=== PATIENT | female | born 1980 | race Caucasian/White ===

== ENCOUNTER → 2017-07-20 | Outpatient (REF) | payer OTHER ==
[2017-07-20 08:52] LABS: MEAN CORPUSCULAR HEMOGLOBIN 30.4 pg (27.0-33.0); MEAN CORPUSCULAR HGB CONC 34.4 g/dl (32.0-36.5); MEAN CORPUSCULAR VOLUME 88.3 fl (80.0-96.0); WHITE BLOOD COUNT 5.4 K/mm3 (4.0-10.0)
[2017-07-20 09:20] LABS: ALBUMIN 3.6 GM/DL (3.2-5.2); ALBUMIN/GLOBULIN RATIO 1.03 (1.00-1.93); ALKALINE PHOSPHATASE 48 U/L (45-117); ALT/SGPT 17 U/L (12-78); ANION GAP 10 MEQ/L (8-16); AST/SGOT 14 U/L (15-37); BILIRUBIN,TOTAL 0.5 MG/DL (0.2-1.0); BLOOD UREA NITROGEN 16 MG/DL (7-18); CALCIUM LEVEL 8.5 MG/DL (8.5-10.1); CARBON DIOXIDE LEVEL 28 MEQ/L (21-32); CHLORIDE LEVEL 105 MEQ/L (98-107); CHOLESTEROL LEVEL 136 MG/DL (<200); CREATININE FOR GFR 0.79 MG/DL (0.55-1.02); GLOMERULAR FILTRATION RATE > 60.0 (>60); GLUCOSE, FASTING 95 MG/DL (70-105); POTASSIUM SERUM 4.2 MEQ/L (3.5-5.1); SODIUM LEVEL 143 MEQ/L (136-145); TOTAL PROTEIN 7.1 GM/DL (6.4-8.2); TRIGLYCERIDES LEVEL 76 MG/DL (<150)
== END ==
LOC: M LABDRAW1 07:50
PROVIDERS: ATTEND Family Medicine
DX: Z00.00 Encounter for general adult medical examination without abnormal findings (principal)

== ENCOUNTER → 2017-09-30 | Outpatient (REF) | payer OTHER | LOC: M SFHCWAGY 16:12 | PROVIDERS: ATTEND Nurse Practitioner Women's Health | DX: Z12.4 Encounter for screening for malignant neoplasm of cervix (principal) ==

== ENCOUNTER → 2017-10-12 | Outpatient (CLI) | payer OTHER ==
--- NOTE | 2017-10-12 09:40 | REP ---
Clinical: Menorrhagia . Technique: Transabdominal pelvic ultrasound followed by transvaginal examination for better evaluation of the endometrium and adnexa. Findings: Bladder is unremarkable and measures 10.0 x 5.2 x 9.4 cm . Heterogeneous anteverted uterus measures 10.2 x 4.6 x 5.9 cm and a subcentimeter left intramural fibroid is suspected. The endometrial complex measures 11 mm thickness. No discrete endometrial abnormality is identified. Bilateral ovaries are normal in appearance. Right ovary measures 4.2 x 1.3 x 3.0 cm with sub centimeter follicles. Left ovary measures 3.3 x 1.5 x 2.7 cm with sub centimeter follicles. No pelvic fluid or adnexal mass lesion. . Impression: Heterogeneous anteverted uterus with sub centimeter fibroid. Normal bilateral follicles. Signed by Zan Nieto MD 10/12/2017 09:32 A
== END ==
LOC: M WHC 07:52
PROVIDERS: ATTEND Nurse Practitioner Women's Health
DX: D25.1 Intramural leiomyoma of uterus (principal); N85.4 Malposition of uterus

== ENCOUNTER 2017-11-04 06:06 | Day surgery (SDC) | payer OTHER ==
[~2017-11-04] VITALS: Ht 157.5 cm; Wt 90.7 kg
[~2017-11-04 06:06] MED LIST: NO MEDICATIONS
[2017-11-04] MEDS ORDERED: LR 1,000 ML IV SCH ×2 (06:15→09:30)
[2017-11-04 06:30] LABS: MEAN CORPUSCULAR HEMOGLOBIN 28.9 pg (27.0-33.0); MEAN CORPUSCULAR HGB CONC 33.3 g/dl (32.0-36.5); MEAN CORPUSCULAR VOLUME 86.6 fl (80.0-96.0); PLATELET COUNT, AUTOMATED 243 10^3/uL (150-450); RED CELL DISTRIBUTION WIDTH 11.9 % (11.5-14.5); WHITE BLOOD COUNT 5.2 10^3/uL (4.0-10.0)
[2017-11-04 06:43] LABS: CONTROL LINE HCG INT CTR LINE PRESENT
[2017-11-04] MEDS ORDERED: BUPIVACAINE HCL 0.25% 30 ML VIAL As Ordered ONE (07:08)
[2017-11-04] MEDS ORDERED: ROCURONIUM BROMIDE 50 MG/5 ML VIAL As Ordered ONE (07:22)
[2017-11-04] MEDS ORDERED: fentaNYL 250 MCG/5 ML INJECTION (J3010) As Ordered ONE (07:22)
[2017-11-04] MEDS ORDERED: LIDOCAINE 2% INJ 100 MG/5 ML SDV (FOR ANES.) As Ordered ONE (07:22)
[2017-11-04] MEDS ORDERED: PROPOFOL 200 MG/20 ML VIAL As Ordered ONE (07:22)
[2017-11-04] MEDS ORDERED: MIDAZOLAM INJ 2 MG/2 ML VIAL (J2250) As Ordered ONE (07:22)
[2017-11-04] MEDS ORDERED: NEOSTIGMINE 10 MG/10 ML VIAL (J2710) As Ordered ONE (08:00)
[2017-11-04] MEDS ORDERED: ONDANSETRON 4MG/2ML VIAL (J2405) As Ordered ONE ×2 (08:00→09:17)
[2017-11-04] MEDS ORDERED: dexameTHASONE 4 MG/ML 1ML VIAL (J1100) As Ordered ONE (08:00)
[2017-11-04] MEDS ORDERED: GLYCOPYRROLATE INJ 0.2 MG/ML 2 ML VIAL As Ordered ONE (08:00)
[2017-11-04] MEDS ORDERED: KETOROLAC 60 MG/2 ML VIAL (J1885) As Ordered ONE (08:00)
[2017-11-04] MEDS ORDERED: HYDROmorphone HCL 2 MG/ML 1ML VIAL (J1170) As Ordered ONE (08:11)
[2017-11-04] MEDS ORDERED: MORPHINE 10 MG/ML 1ML VIAL IV PRN (09:30)
[2017-11-04] MEDS ORDERED: KETOROLAC 30 MG/ML VIAL (J1885) IV PRN (09:30)
[2017-11-04] MEDS ORDERED: METOCLOPRAMIDE INJ 10MG/2ML VIAL (J2765) IV PRN (09:30)
[2017-11-04] MEDS ORDERED: ONDANSETRON 4MG/2ML VIAL (J2405) IV PRN (09:30)
[2017-11-04] MEDS ORDERED: PERCOCET 5MG/325MG TAB PO PRN (09:30)
[2017-11-04] MEDS ORDERED: fentaNYL 100 MCG/2 ML INJECTION (J3010) IV PRN (09:30)
[2017-11-04] MEDS ORDERED: MEPERIDINE INJ 25 MG/ML VIAL (J2175) IV PRN (09:30)
--- NOTE | 2017-11-04 10:20 | RO ---
DATE OF PROCEDURE: 11/04/2017 PREPROCEDURE DIAGNOSES: 1. Abnormal uterine bleeding. 2. Satisfied parity, undesired fertility. POSTPROCEDURE DIAGNOSES: 1. Abnormal uterine bleeding. 2. Satisfied parity, undesired fertility. PROCEDURES PERFORMED: 1. Laparoscopic bilateral tubal ligation using Filshie clips. 2. Hysteroscopy, dilatation and curettage with NovaSure ablation. SURGEON: Liliya Castanon MD LIBRARY SCIENCE INSTRUCTOR: None. ANESTHESIA: General endotracheal anesthesia. ESTIMATED BLOOD LOSS: 5 mL. INTRAVENOUS FLUIDS: 1 liter of lactated Ringer solution. URINE OUTPUT: 700 mL. SPECIMENS: Endometrial curettings. INFECTION CLASSIFICATION: #1. PREOPERATIVE ANTIBIOTICS: None. OPERATIVE FINDINGS: Laparoscopic findings reveal omental adhesions to the anterior abdominal wall above the umbilicus. Normal appearing pelvic anatomy to include the uterus, anterior and posterior cul-de-sac, bilateral adnexa. Hysteroscopic findings showed thickened endometrium. Uterus dimensions 6.5 x 3.5 cm. Post ablation hysteroscopy demonstrated desiccation of endometrium. DESCRIPTION OF PROCEDURE: After informed consent was obtained and written consent was reviewed, the patient was brought to the operating room where general endotracheal anesthesia was obtained. She was then placed in lithotomy position and was prepped and draped in a normal sterile fashion. A time-out in the operating room was then performed identifying the patient, procedure to be performed, as well as drug allergies. A bivalve speculum was then placed revealing the cervix. The anterior lip of the cervix was then grasped with a single toothed tenaculum. The uterine length was then obtained. A Hulka tenaculum was then advanced through the cervical os for means to manipulate the uterus. The single toothed tenaculum and speculum was then removed. Carpio catheter was placed and set to gravity. Gloves were changed and attention was turned to the patient's abdomen where 0.25% Marcaine was infused in the umbilical region. This area was incised and a 5 mm trocar and sleeve was advanced through this incision. Laparoscope was then placed, revealing intraabdominal placement. A pneumoperitoneum was then obtained with CO2 gas. The abdomen was then surveyed with the above noted findings. 0.25% Marcaine was then infused 2 cm above the pubic symphysis in the midline. This area was incised and an 8 mm trocar and sleeve was advanced through this incision. Utilizing a Filshie clip applicator, a Filshie clip was then applied in the mid isthmus portion of the left fallopian tube with good blanching noted. Filshie clip applicator was reloaded and in a similar fashion the tube was followed out to the fimbriated end. The Filshie clip was applied in the mid isthmus portion of the left fallopian tube. Instruments were then removed from the patient's abdomen. Pneumoperitoneum was then released. Trocars were removed. Incision sites were closed with #4-0 Monocryl and was dressed with Dermabond. Next, attention was then turned to the hysteroscopy, dilatation and curettage portion, and NovaSure portion of the operation. Hulka tenaculum was removed. Speculum was then placed in the vagina revealing the cervix. The anterior lip of the cervix was grasped with a single toothed tenaculum. The cervix was then sequentially dilated using a Wenceslao's dilators. Hysteroscope was then advanced through the cervical os and endometrium was then surveyed with the above noted findings. The hysteroscope was then removed. A sharp curette was then advanced through the cervical os to the level of the fundus. The uterus was curetted in a 360 degree fashion. A large amount of tissue was obtained. The NovaSure device was then placed in the cervix. The uterine width was then obtained. Both the width and length was entered into a NovaSure device. Cavity specimen was performed, followed by uterine ablation, total length was 1 minute and 25 seconds. NovaSure was then removed from the uterus. Mesh was inspected and noted to be intact. Hysteroscope was then reinserted in the cervical os and the endometrium was surveyed showing desiccation of the endometrium. Hysteroscope was then removed. Single toothed tenaculum was removed. Tenaculum sites were noted to be hemostatic. Speculum was then removed. The patient was then taken out of lithotomy position, was awakened from general anesthesia and taken to the recovery room in stable condition. Counts were correct.
[2017-11-04 12:10] VITALS: BP 126/68
[2017-11-04] MEDS ORDERED: METOCLOPRAMIDE INJ 10MG/2ML VIAL (J2765) As Ordered ONE (12:21)
[2017-11-04] MEDS ORDERED: KETOROLAC 30 MG/ML VIAL (J1885) IV SCH (14:00)
== END 2017-11-04 13:33 | disposition home or self-care (01) ==
LOC: M SDC 06:06
PROVIDERS: ATTEND Obstetrics & Gynecology
DX: Z30.2 Encounter for sterilization (principal); N93.9 Abnormal uterine and vaginal bleeding, unspecified; M12.9 Arthropathy, unspecified; E66.9 Obesity, unspecified; Z68.36 Body mass index [BMI] 36.0-36.9, adult
CPT/HCPCS: 36415; 58563; 58671; 84703; 85027; 86850; 86900; 86901; 88305; A4264; J1100; J1170; J1885; J2250; J2405; J2710; J2765; J3010

== ENCOUNTER → 2019-12-18 | Outpatient (CLI) | payer OTHER ==
--- NOTE | 2019-12-18 10:25 | REP ---
BILATERAL SCREENING DIGITAL MAMMOGRAM WITH 3D TOMOSYNTHESIS: There are no palpable abnormalities or other breast complaints. The the patient states she had a clinical breast examination December,. The [facility] Lifetime Breast Cancer Risk Score is: 11.0% . Comparison is the and outside study dated 02/06/2019. There are no other comparisons available. The breasts are heterogeneously dense, which could obscure small masses. There is no dominant mass, micro calcific cluster or architectural distortion that would indicate malignancy. There are no additional findings on 3D tomosynthesiss. There is no change from the prior study. Impression: BIRADS/ACR category 1 mammogram. Negative. Recommendation: Routine annual screening mammography. Because of the increased breast density, annual adjunctive breast MRI in addition to screening mammography is recommended. These can be performed at alternating six month intervals. This mammogram was interpreted with the aid of a FDA approved computer-aided detection system. A. Negative mammogram reports should not delay biopsy if a dominant or clinically suspicious mass is present. B. Not all breast cancers are identified by mammography or tomosynthesis. C. Adenosis and dense breasts may obscure an underlying neoplasm. Patient letter M1 dense breasts. Electronically Signed by Will Ely MD 12/18/2019 10:17 A
== END ==
LOC: M WHC 08:12
PROVIDERS: ATTEND Nurse Practitioner Women's Health
DX: Z12.31 Encounter for screening mammogram for malignant neoplasm of breast (principal)

== ENCOUNTER → 2019-12-18 | Outpatient (REF) | payer OTHER | LOC: M SFHCWAGY 12:53 | PROVIDERS: ATTEND Nurse Practitioner Women's Health | DX: Z12.4 Encounter for screening for malignant neoplasm of cervix (principal) ==

== ENCOUNTER → 2021-02-03 | Outpatient (CLI) | payer OTHER ==
--- NOTE | 2021-02-03 10:05 | REPMRS ---
Patient History The patient states she had a clinical breast exam in January 2021. Family history of endometrial cancer at age 55 in maternal aunt. Digital Woman Screen Mammo: February 03, 2021 - Exam #: [id number] Bilateral CC and MLO view(s) were taken. Technologist: Niki Prajapati, Technologist Prior study comparison: December 18, 2019, bilateral digital woman screen mammo performed at [facility]. 2019, bilateral digital woman screen mammo, performed at [facility]. FINDINGS: The breast tissue is heterogeneously dense. This may lower the sensitivity of mammography. The Volpara volumetric breast density category is: C. There is a moderate amount of heterogeneously dense fibroglandular tissue which is fairly symmetric. There is no interval development of dominant mass, architectural distortion, or grouped microcalcification typical of malignancy. There has been no change in the appearance of the mammogram from the prior studies. 3-D tomosynthesis shows no additional findings. Assessment: BI-RADS/ACR category 1 mammogram. Negative Mammogram. Recommendation Routine screening mammogram of both breasts in 1 year (for women over age 40). This patient's [facility] Lifetime Breast Cancer RIsk is estimated at 10.8 %. This mammogram was interpreted with the aid of an FDA-approved computer-aided dectection system. Electronically Signed By: Corona Jordan MD 02/03/21 [id number]
== END ==
LOC: M WHC 08:15
PROVIDERS: ATTEND Nurse Practitioner Women's Health
DX: Z12.31 Encounter for screening mammogram for malignant neoplasm of breast (principal)

== ENCOUNTER → 2021-02-03 | Outpatient (CLI) | payer OTHER ==
[2021-02-03 14:15] LABS: HEMATOCRIT 42.5 % (36.0-47.0); HEMOGLOBIN 13.4 g/dl (12.0-15.5); MEAN CORPUSCULAR HEMOGLOBIN 27.2 pg (27.0-33.0); MEAN CORPUSCULAR HGB CONC 31.5 g/dl (32.0-36.5); MEAN CORPUSCULAR VOLUME 86.4 fl (80.0-96.0); PLATELET COUNT, AUTOMATED 338 10^3/uL (150-450); RED BLOOD COUNT 4.92 10^6/uL (4.00-5.40); WHITE BLOOD COUNT 6.1 10^3/uL (4.0-10.0)
[2021-02-03 14:52] LABS: ALBUMIN 3.5 GM/DL (3.2-5.2); ALT/SGPT 30 U/L (12-78); BILIRUBIN,TOTAL 0.3 MG/DL (0.2-1.0); BLOOD UREA NITROGEN 15 MG/DL (7-18); CALCIUM LEVEL 8.8 MG/DL (8.5-10.1); CARBON DIOXIDE LEVEL 29 MEQ/L (21-32); CHLORIDE LEVEL 107 MEQ/L (98-107); CHOLESTEROL LEVEL 186 MG/DL (<200); CREATININE FOR GFR 0.79 MG/DL (0.55-1.30); GLOMERULAR FILTRATION RATE > 60.0 (>58); GLUCOSE, FASTING 117 MG/DL (70-100); HDL CHOLESTEROL 50 MG/DL (>40); LDL CHOLESTEROL 113 MG/DL (<100); NON-HDL-C 136 MG/DL; POTASSIUM SERUM 4.5 MEQ/L (3.5-5.1); SODIUM LEVEL 140 MEQ/L (136-145); TOTAL PROTEIN 7.4 GM/DL (6.4-8.2); TRIGLYCERIDES LEVEL 116 MG/DL (<150)
== END ==
LOC: M PLALAB 09:27
PROVIDERS: ATTEND Family Medicine
DX: R63.5 Abnormal weight gain (principal)

== ENCOUNTER → 2021-10-22 | Outpatient (CLI) | payer OTHER ==
[2021-10-22 11:50] LABS: ALBUMIN 3.7 GM/DL (3.2-5.2); ALT/SGPT 43 U/L (12-78); BILIRUBIN,TOTAL 0.3 MG/DL (0.2-1.0); BLOOD UREA NITROGEN 13 MG/DL (7-18); CALCIUM LEVEL 9.3 MG/DL (8.5-10.1); CARBON DIOXIDE LEVEL 25 MEQ/L (21-32); CHLORIDE LEVEL 107 MEQ/L (98-107); CHOLESTEROL LEVEL 168 MG/DL (<200); CHOLESTEROL RISK RATIO 3.733 (<5); GLOMERULAR FILTRATION RATE > 60.0 (>58); GLUCOSE, FASTING 124 MG/DL (70-100); HDL CHOLESTEROL 45 MG/DL (>40); LDL CHOLESTEROL 102 MG/DL (<100); NON-HDL-C 123 MG/DL; SODIUM LEVEL 139 MEQ/L (136-145); TOTAL PROTEIN 7.4 GM/DL (6.4-8.2); TRIGLYCERIDES LEVEL 107 MG/DL (<150)
[2021-10-22 14:06] LABS: HEMOGLOBIN A1c 5.8 %
== END ==
LOC: M PLALAB 07:36
PROVIDERS: ATTEND Family Medicine
DX: Z00.00 Encounter for general adult medical examination without abnormal findings (principal); R73.01 Impaired fasting glucose

== ENCOUNTER → 2021-10-22 | Outpatient (CLI) | payer OTHER ==
[~2021-10-22] MED LIST changes: +LORA-674 PO; +SERT50TA29 PO
[2021-10-22 12:05] LABS: BLOOD UREA NITROGEN 13 MG/DL (7-18); CREATININE FOR GFR 0.78 MG/DL (0.55-1.30); GLOMERULAR FILTRATION RATE > 60.0 (>58)
== END ==
LOC: M PLALAB 07:39
PROVIDERS: ATTEND Podiatrist
DX: Z13.9 Encounter for screening, unspecified (principal)

== ENCOUNTER → 2021-12-25 | Outpatient (CLI) | payer OTHER ==
[~2021-12-25] MED LIST changes: -LORA-674 PO; -SERT50TA29 PO
[2021-12-25 16:05] LABS: BASO # 0.1 10^3/uL (0.0-0.2); EOS # 0.1 10^3/uL (0.0-0.5); EOS % 1.4 % (0.0-3.0); HEMATOCRIT 42.6 % (36.0-47.0); HEMOGLOBIN 13.7 g/dl (12.0-15.5); LYMPH # 2.4 10^3/uL (1.5-5.0); LYMPH % 26.8 % (24.0-44.0); MEAN CORPUSCULAR HEMOGLOBIN 28.1 pg (27.0-33.0); MEAN CORPUSCULAR HGB CONC 32.2 g/dl (32.0-36.5); MEAN CORPUSCULAR VOLUME 87.3 fl (80.0-96.0); MONO # 0.7 10^3/uL (0.0-0.8); MONO % 7.8 % (2.0-8.0); NEUTROPHILS # 5.5 10^3/uL (1.5-8.5); NEUTROPHILS % 62.7 % (36.0-66.0); PLATELET COUNT, AUTOMATED 352 10^3/uL (150-450); RED BLOOD COUNT 4.88 10^6/uL (4.00-5.40); WHITE BLOOD COUNT 8.8 10^3/uL (4.0-10.0)
[2021-12-25 16:17] LABS: BLOOD UREA NITROGEN 14 MG/DL (7-18); CALCIUM LEVEL 9.4 MG/DL (8.5-10.1); CARBON DIOXIDE LEVEL 25 MEQ/L (21-32); CHLORIDE LEVEL 105 MEQ/L (98-107); GLOMERULAR FILTRATION RATE > 60.0 (>58); GLUCOSE, FASTING 88 MG/DL (70-100); POTASSIUM SERUM 4.4 MEQ/L (3.5-5.1); SODIUM LEVEL 137 MEQ/L (136-145)
[2021-12-25 16:25] LABS: HCG, SERUM QUALITATIVE NEGATIVE (NEGATIVE)
== END ==
LOC: M EKG 14:18
PROVIDERS: ATTEND Podiatrist
DX: Z01.818 Encounter for other preprocedural examination (principal); D49.2 Neoplasm of unspecified behavior of bone, soft tissue, and skin

== ENCOUNTER → 2021-12-28 | Outpatient (CLI) | payer OTHER ==
[~2021-12-28] MED LIST changes: +SERT50TA29 PO
== END ==
LOC: M LABSMTC 09:40
PROVIDERS: ATTEND Anesthesiology
DX: Z11.52 Encounter for screening for COVID-19 (principal); Z20.822 Contact with and (suspected) exposure to COVID-19

== ENCOUNTER → 2022-01-01 | Day surgery (SDC) | payer OTHER ==
[~2022-01-01] VITALS: Ht 157.5 cm; Wt 107.0 kg
[~2022-01-01] MED LIST changes: +BUPIVACAINE HCL 0.5% 10ML VIAL As Ordered ONE; +GENTAMICIN SULF 80MG/2ML VIAL As Ordered ONE; +LIDOCAINE 2% INJ 100 MG/5 ML SYRINGE As Ordered ONE; +LIDOCAINE 2% MDV 20ML VIAL As Ordered ONE; +LORA-674 PO; +LR 1,000 ML IV ONE; +MIDAZOLAM INJ 2MG/2ML VIAL (J2250 PER 1MG) As Ordered ONE; +ceFAZolin SOD 2 GM in IV 1 EA IV ONE; +dexameTHASONE 4 MG/ML 1ML VIAL (J1100 PER 1MG) As Ordered ONE; +fentaNYL 100 MCG/2 ML INJECTION As Ordered ONE; +propofoL 200 MG/20 ML VIAL As Ordered ONE
[2022-01-01 07:34] LABS: HCG, SERUM QUALITATIVE NEGATIVE (NEGATIVE)
[2022-01-01 10:32] VITALS: BP 162/86
== END | disposition home or self-care (01) ==
LOC: M SDC 06:52
PROVIDERS: ATTEND Podiatrist
DX: D48.7 Neoplasm of uncertain behavior of other specified sites (principal); N92.0 Excessive and frequent menstruation with regular cycle; F32.9 Major depressive disorder, single episode, unspecified; R06.83 Snoring; Z79.899 Other long term (current) drug therapy
CPT/HCPCS: 28041; 36415; 84703; 88305; J0690; J1580; J2250; J3010

== ENCOUNTER → 2022-02-04 | Outpatient (CLI) | payer OTHER ==
[~2022-02-04] MED LIST changes: -BUPIVACAINE HCL 0.5% 10ML VIAL As Ordered ONE; -GENTAMICIN SULF 80MG/2ML VIAL As Ordered ONE; -LIDOCAINE 2% INJ 100 MG/5 ML SYRINGE As Ordered ONE; -LIDOCAINE 2% MDV 20ML VIAL As Ordered ONE; -LR 1,000 ML IV ONE; -MIDAZOLAM INJ 2MG/2ML VIAL (J2250 PER 1MG) As Ordered ONE; -ceFAZolin SOD 2 GM in IV 1 EA IV ONE; -dexameTHASONE 4 MG/ML 1ML VIAL (J1100 PER 1MG) As Ordered ONE; -fentaNYL 100 MCG/2 ML INJECTION As Ordered ONE; -propofoL 200 MG/20 ML VIAL As Ordered ONE
== END ==
LOC: M WHC 10:36
PROVIDERS: ATTEND Obstetrics & Gynecology
DX: Z12.31 Encounter for screening mammogram for malignant neoplasm of breast (principal)

== ENCOUNTER → 2022-02-04 | Outpatient (REF) | payer OTHER | LOC: M SFHCWAGY 11:12 | PROVIDERS: ATTEND Obstetrics & Gynecology | DX: Z12.4 Encounter for screening for malignant neoplasm of cervix (principal) | CPT/HCPCS: 87624; G0123 ==

== ENCOUNTER → 2022-02-08 | Outpatient (CLI) | payer OTHER | LOC: M WHC 08:37 | PROVIDERS: ATTEND Obstetrics & Gynecology | DX: Z12.31 Encounter for screening mammogram for malignant neoplasm of breast (principal) ==

== ENCOUNTER → 2022-08-30 | Outpatient (REF) | payer BC, OTHER | LOC: M WUC 18:52 | PROVIDERS: ATTEND Physician Assistant | DX: N39.0 Urinary tract infection, site not specified (principal) ==

== ENCOUNTER → 2023-02-04 | Outpatient (CLI) | payer BC ==
[2023-02-04 08:08] LABS: BASO # 0.1 10^3/uL (0.0-0.2); EOS # 0.3 10^3/uL (0.0-0.5); EOS % 3.5 % (0.0-3.0); HEMATOCRIT 41.9 % (36.0-47.0); HEMOGLOBIN 13.7 g/dl (12.0-15.5); LYMPH # 2.3 10^3/uL (1.5-5.0); LYMPH % 29.4 % (24.0-44.0); MEAN CORPUSCULAR HEMOGLOBIN 28.6 pg (27.0-33.0); MEAN CORPUSCULAR HGB CONC 32.7 g/dl (32.0-36.5); MEAN CORPUSCULAR VOLUME 87.5 fl (80.0-96.0); MONO # 0.4 10^3/uL (0.0-0.8); MONO % 5.7 % (2.0-8.0); NEUTROPHILS # 4.7 10^3/uL (1.5-8.5); NEUTROPHILS % 60.3 % (36.0-66.0); PLATELET COUNT, AUTOMATED 300 10^3/uL (150-450); RED BLOOD COUNT 4.79 10^6/uL (4.00-5.40); WHITE BLOOD COUNT 7.8 10^3/uL (4.0-10.0)
[2023-02-04 08:37] LABS: HEMOGLOBIN A1c 5.9 % (4.0-6.0)
[2023-02-04 08:41] LABS: ALBUMIN 3.6 G/DL (3.2-5.2); ALKALINE PHOSPHATASE 73 U/L (46-116); ALT/SGPT 22 U/L (7.0-40); AST/SGOT 14 U/L (<34); BILIRUBIN,TOTAL 0.6 MG/DL (0.3-1.2); BLOOD UREA NITROGEN 13 MG/DL (9-23); CALCIUM LEVEL 8.8 MG/DL (8.5-10.1); CARBON DIOXIDE LEVEL 25 MMOL/L (20-31); CHLORIDE LEVEL 106 MMOL/L (98-107); CHOLESTEROL LEVEL 174 MG/DL (<200); CREATININE FOR GFR 0.74 MG/DL (0.55-1.30); GLOMERULAR FILTRATION RATE > 60.0 (>58); GLUCOSE, FASTING 122 MG/DL (60-100); HDL CHOLESTEROL 48.2 MG/DL (>40); NON-HDL-C 125.8 MG/DL; POTASSIUM SERUM 4.2 MMOL/L (3.5-5.1); SODIUM LEVEL 139 MMOL/L (136-145); THYROID STIMULATING HORMONE 1.189 uIU/ML (0.55-4.78); TRIGLYCERIDES LEVEL 99 MG/DL (<150)
== END ==
LOC: M LAB 07:43
PROVIDERS: ATTEND Family Medicine
DX: Z00.00 Encounter for general adult medical examination without abnormal findings (principal); R73.01 Impaired fasting glucose; R63.5 Abnormal weight gain

== ENCOUNTER → 2023-07-12 | Outpatient (CLI) | payer BC ==
[~2023-07-12] MED LIST changes: +LORA-1041 PO; -LORA-674 PO
== END ==
LOC: M WHC 08:47
PROVIDERS: ATTEND Obstetrics & Gynecology
DX: Z12.31 Encounter for screening mammogram for malignant neoplasm of breast (principal)

== ENCOUNTER → 2023-07-12 | Outpatient (REF) | payer BC ==
[~2023-07-12] MED LIST changes: -LORA-1041 PO; +LORA-674 PO
== END ==
LOC: M SFHCWAGY 13:23
PROVIDERS: ATTEND Obstetrics & Gynecology
DX: Z12.4 Encounter for screening for malignant neoplasm of cervix (principal)

== ENCOUNTER → 2024-12-11 | Outpatient (CLI) | payer BC ==
[~2024-12-11] MED LIST changes: +LORA-1041 PO; -LORA-674 PO
== END ==
LOC: M WHC 07:58
PROVIDERS: ATTEND Obstetrics & Gynecology
DX: Z12.31 Encounter for screening mammogram for malignant neoplasm of breast (principal); R92.333 Mammographic heterogeneous density, bilateral breasts

== ENCOUNTER → 2024-12-11 | Outpatient (REF) | payer BC | LOC: M SFHCWAGY 10:01 | PROVIDERS: ATTEND Obstetrics & Gynecology | DX: Z01.419 Encounter for gynecological examination (general) (routine) without abnormal findings (principal) | CPT/HCPCS: 87624; G0123 ==

== ENCOUNTER 2025-05-28 07:53 | Emergency (ER) | payer BC ==
[~2025-05-28] VITALS: Ht 160 cm; Wt 114.2 kg
[2025-05-28] MEDS ORDERED: PROBCAP14 PO (09:28)
[2025-05-28] MEDS ORDERED: SERT-141 PO (09:28)
[2025-05-28] MEDS ORDERED: HOME MED LIST COMPLETE! XX SCH (09:30)
[2025-05-28] MEDS: KETOROLAC 60 MG/2 ML VIAL IM ONE (10:57)
[2025-05-28] MEDS ORDERED: HYDR-3715 PO (11:31)
[2025-05-28] MEDS ORDERED: MEDR4PAK PO (11:31)
[2025-05-28] MEDS ORDERED: METH-1164 PO (11:31)
[2025-05-28 11:50] VITALS: BP 135/62; TEMP 97.1; O2SAT 96
== END 2025-05-28 12:01 | disposition home or self-care (01) ==
LOC: M ED 07:53
DX: M51.360 Other intervertebral disc degeneration, lumbar region with discogenic back pain only (principal); F32.A Depression, unspecified; Z79.899 Other long term (current) drug therapy
CPT/HCPCS: 72128; 72131; 96372; 99283; J1885